=== PATIENT | female | born 1940 | race Caucasian/White ===

== ENCOUNTER 2019-10-12 05:23 | Emergency (ER) | payer MEDICARE ==
[~2019-10-12] VITALS: Ht 157.5 cm; Wt 61.4 kg
[2019-10-12 05:34] VITALS: Ht 157.5 cm; Wt 61.4 kg
[2019-10-12] MEDS ORDERED: CIPRO250 MG PO (05:34)
[2019-10-12] MEDS ORDERED: PRAVACHOL40 MG PO (05:35)
[2019-10-12] MEDS ORDERED: SYNTHROID112 MCG PO (05:35)
[2019-10-12] MEDS ORDERED: BAYER CHEWABLE81 MG PO (05:37)
[2019-10-12 05:58] LABS: BASOPHILS 0.2 % (0-2); EOSINOPHILS 0.4 % (0-7); HEMATOCRIT 41.2 % (36.0-48.0); HEMOGLOBIN 13.5 g/dL (12-16); IMMATURE GRANULOCYTES 0.5 % (0-5); LYMPHOCYTES 17.9 % (15-50); MCH 30.5 pg (26.0-34.0); MCHC 32.8 g/dL (31.0-37.0); MEAN PLATELET VOLUME 8.8 fL (7.4-10.4); MONOCYTES 12.3 % (2-11); NEUTROPHILS 68.7 % (40-80); PLATELET COUNT 362 10x3/uL (130-400); RBC 4.43 10x6/uL (4.00-5.40); RDW 13.8 % (11.5-14.5); WBC 9.9 10x3/uL (4.8-10.8)
[2019-10-12 06:13] LABS: CALC OSMOLALITY 271 mosm/kg (275-300); CALCIUM 9.3 mg/dL (8.5-10.1); CHLORIDE - SERUM 99 mmol/L (98-107); CREATININE - SERUM 1.1 mg/dL (0.6-1.3); GLUCOSE 115 mg/dL (74-106); POTASSIUM - SERUM 4.2 mmol/L (3.5-5.1); SODIUM 136 mmol/L (136-145); UREA NITROGEN 10 mg/dL (7-18); eGFR NON AFRICAN AMERICAN 51 mL/min (90-120)
[2019-10-12 06:22] LABS: ALBUMIN 3.3 g/dL (3.4-5.0); ALKALINE PHOSPHATASE 973 U/L (46-116); ALT (SGPT) 588 U/L (10-68); AMYLASE - SERUM 33 U/L (25-115); BILIRUBIN - TOTAL 2.62 mg/dL (0.2-1.3); LIPASE 173 U/L (73-393); PROTEIN - SERUM 7.9 g/dL (6.4-8.2); TROPONIN-I < 0.017 ng/mL (0.000-0.060)
[2019-10-12 07:59] LABS: APPEARANCE CLEAR (CLEAR); BILIRUBIN NEGATIVE (NEGATIVE); COLOR YELLOW (YELLOW); GLUCOSE NEGATIVE (NEGATIVE); KETONE NEGATIVE (NEGATIVE); NITRITE NEGATIVE (NEGATIVE); PROTEIN NEGATIVE (NEGATIVE); RED CELLS - URINE RARE /hpf (0-5); WHITE CELLS - URINE NSEEN /hpf (NEGATIVE)
[2019-10-12 08:00] LABS: BACTERIA FEW /hpf (NEGATIVE); EPITHELIAL CELLS OCC /hpf (0-5); MUCUS <1+ /lpf (NONE SEEN)
[2019-10-12 12:27] VITALS: BP 138/62
[2019-10-13 08:10] LABS: HEPATITIS C ANTIBODY <0.1 (0.0-0.9)
== END 2019-10-12 12:29 | disposition other institution (70) ==
LOC: D.ER 05:23
PROVIDERS: Family Medicine
DX: R10.9 Unspecified abdominal pain (principal); K83.09 Other cholangitis; K83.8 Other specified diseases of biliary tract; R14.0 Abdominal distension (gaseous); I10 Essential (primary) hypertension

== ENCOUNTER → 2019-10-22 22:37 | Outpatient (CLI) | payer MEDICARE ==
[2019-10-12 05:34] VITALS: BMI 24.7
[~2019-10-22 22:37] MED LIST: BAYER CHEWABLE81 MG PO; CIPRO250 MG PO; PRAVACHOL40 MG PO; SYNTHROID112 MCG PO
[2019-10-22 22:55] LABS: BASOPHILS 0.1 % (0-2); EOSINOPHILS 1.8 % (0-7); HEMATOCRIT 37.6 % (36.0-48.0); HEMOGLOBIN 12.1 g/dL (12-16); LYMPHOCYTES 34.6 % (15-50); MCH 30.1 pg (26.0-34.0); MCHC 32.2 g/dL (31.0-37.0); MCV 93.5 fL (80.0-100.0); MEAN PLATELET VOLUME 9.1 fL (7.4-10.4); MONOCYTES 13.5 % (2-11); RBC 4.02 10x6/uL (4.00-5.40); RDW 15.2 % (11.5-14.5); WBC 7.3 10x3/uL (4.8-10.8)
[2019-10-22 22:57] LABS: PLATELET COUNT 466 10x3/uL (130-400)
[2019-10-22 23:07] LABS: ALBUMIN 3.2 g/dL (3.4-5.0); ALKALINE PHOSPHATASE 307 U/L (46-116); ALT (SGPT) 78 U/L (10-68); BILIRUBIN - DIRECT 0.45 mg/dL (0.00-0.30); BILIRUBIN - INDIRECT 0.01 mg/dL (0.00-1.00); BILIRUBIN - TOTAL 0.46 mg/dL (0.2-1.3); CALC OSMOLALITY 274 mosm/kg (275-300); CALCIUM 8.6 mg/dL (8.5-10.1); CARBON DIOXIDE 27.3 mmol/L (21.0-32.0); CHLORIDE - SERUM 102 mmol/L (98-107); CREATININE - SERUM 0.7 mg/dL (0.6-1.3); GLUCOSE 96 mg/dL (74-106); PROTEIN - SERUM 6.5 g/dL (6.4-8.2); SODIUM 138 mmol/L (136-145); UREA NITROGEN 9 mg/dL (7-18); eGFR NON AFRICAN AMERICAN 86 mL/min (90-120)
== END | disposition home or self-care (01) ==
LOC: D.LABREF 22:37
PROVIDERS: ATTEND Internal Medicine Infectious Disease
DX: K75.0 Abscess of liver (principal)